=== PATIENT | male | born 1955 | race African-American/Black ===

== ENCOUNTER → 2019-04-11 10:17 | Outpatient (CLI) | payer MEDICAID ==
[2019-04-11 10:48] LABS: BASOPHILS 0.1 % (0-2); EOSINOPHILS 1.2 % (0-7); HEMATOCRIT 45.7 % (42.0-54.0); HEMOGLOBIN 15.2 g/dL (13.5-17.5); IMMATURE GRANULOCYTES 0.4 % (0-5); LYMPHOCYTES 28.9 % (15-50); MCH 31.2 pg (26.0-34.0); MCHC 33.3 g/dL (31.0-37.0); MCV 93.8 fL (80.0-100.0); MONOCYTES 5.3 % (2-11); NEUTROPHILS 64.1 % (40-80); PLATELET COUNT 239 10x3/uL (130-400); RBC 4.87 10x6/uL (4.20-6.10); WBC 7.5 10x3/uL (4.8-10.8)
[2019-04-11 12:24] LABS: CREATININE - SERUM 1.1 mg/dL (0.6-1.3)
== END | disposition home or self-care (01) ==
LOC: D.CT 10:17
PROVIDERS: ATTEND Internal Medicine Gastroenterology
DX: R10.9 Unspecified abdominal pain (principal); K29.40 Chronic atrophic gastritis without bleeding; K63.89 Other specified diseases of intestine